=== PATIENT | female | born 1995 | race Caucasian/White ===

== ENCOUNTER → 2020-09-16 15:07 | Outpatient (CLI) | payer OTHER, SELFPAY ==
[2020-09-16 14:26] VITALS: BMI 25.0
[2020-09-16 15:32] LABS: Absolute Lymphocyte Count 2.02 X10^3/uL (0.83-4.51); Absolute Neutrophil Count 5.5 X10^3/uL (2.0-7.7); Basophil# 0.03 X10^3/uL; Basophil% 0.4 % (0-1); Eosinophil# 0.06 X10^3/uL; Eosinophils% 0.7 % (0-5); Hematocrit 36.8 % (37-47); Hemoglobin 12.3 g/dL (12.0-15.0); Lymphocyte # 2.02 X10^3/ul (4.0); Mean Corp Hgb Conc 33.4 g/dL (32-36); Mean Corpuscular Hgb 31.3 pg (27.0-32.0); Mean Corpuscular Volume 93.6 fL (81-99); Mean Platelet Vol. 10.2 fl (6.2-12.0); Monocyte# 0.76 X10^3/uL; NRBC Flagged by Analyzer 0 % (0-5); Neutrophil # 5.53 X10^3/uL (2.7-7.7); Neutrophil % 65.7 % (47-70); Platelet Count 298 K/mm3 (150-450); RBC Distribution Width CV 11.9 % (11.6-14.6); RBC Distribution Width SD 40.6 fl (35.1-43.9); Red Blood Count 3.93 M/mm3 (4.2-5.4); White Blood Count 8.4 K/mm3 (4.4-11.0)
[2020-09-16 15:49] LABS: T4 Free Direct 1.04 ng/dL (0.76-1.46); Thyroid Stim Hormone (TSH) 2.34 uIU/mL (0.358-3.74)
[2020-09-16 18:20] LABS: Amphetamine Urine VISTA NEGATIVE (<1000 ng/mL); Barbiturate Urine VISTA NEGATIVE (< 200 ng/mL); Benzodiazepine Urine VISTA NEGATIVE (< 200 ng/mL); Cocaine Urine VISTA NEGATIVE (< 300 ng/mL); Ecstacy Urine VISTA NEGATIVE (< 500 ng/mL); Methadone Urine VISTA NEGATIVE (< 300 ng/mL); PCP Urine VISTA NEGATIVE (< 25 ng/mL); THC Urine VISTA NEGATIVE (< 50 ng/mL); Vista UDS pH Range 7
[2020-09-17 09:32] LABS: HIV - WCH Non-Reactive (Nonreactive); Hepatitis B Surface Antigen Non-Reactive (Nonreactive); Hepatitis C Antibody Non-Reactive (Nonreactive); Rubella IgG Reactive (Nonreactive)
[2020-09-20 20:07] LABS: Chlamydia By Nucleic Acid AMP Negative (Negative)
[2020-09-20 21:17] LABS: Gonococcus By Nucleic Acid AMP Negative (Negative)
[2020-09-23 01:10] LABS: Rapid Plasmin Reagin (RPR) NONREACTIVE (NONREACTIVE)
[2020-09-23 10:29] LABS: HPV Reflexed? NOT INDICATED
== END ==
PROVIDERS: PCP Family Medicine; Referring Provider Obstetrics & Gynecology; Visit Provider Obstetrics & Gynecology
DX: Z12.4 Encounter for screening for malignant neoplasm of cervix (principal); Z11.3 Encounter for screening for infections with a predominantly sexual mode of transmission; O99.280 Endocrine, nutritional and metabolic diseases complicating pregnancy, unspecified trimester; E06.3 Autoimmune thyroiditis; Z3A.00 Weeks of gestation of pregnancy not specified
CPT/HCPCS: 80307; 84439; 84443; 85025; 86592; 86703; 86762; 86803; 86850; 86900; 86901; 87086; 87088; 87340; 87491; 87591; 88175; G0145

== ENCOUNTER 2020-11-20 20:55 | Emergency (ER) | payer OTHER, SELFPAY ==
[2020-11-15 16:30] VITALS: BMI 25.7
[2020-11-20 20:56] VITALS: BP 122/71; PULSE 86; RESP 15; TEMP 36.2; O2SAT 98; BMI 25.8
[2020-11-20 21:21] LABS: Bacteria 0 SEEN /hpf (None Seen); Mucous, Urine 0 SEEN /hpf (<or=2+); Red Blood Cells-Urine 0 SEEN /hpf (0-5); White Blood Cells 0 SEEN /hpf (0-5)
[2020-11-20 21:24] LABS: Color, Urine Yellow (Yellow); Glucose, Dipstick Normal (Normal); Ketone-Dipstick Negative (Negative); Leukocyte Esterase-Dipstick 25 /ul (Negative); Nitrite-Dipstick Negative (Negative); Occult Blood-Urine Negative /ul (Negative); Protein-Dipstick Negative (Negative); Specific Gravity, Urine 1.005 (1.002-1.030); Urine Bilirubin Dipstick Negative (Negative); Urine Clarity Clear (Clear); Urine Urobilinogen Normal (Normal)
--- NOTE | 2020-11-20 21:39 | ED.DCSUM_ITS ---
History of Present Illness Chief Complaint: Abd Pain Informant: Patient Onset: Today Context: Sudden Onset Timing: Continuous Quality: Cramping central low back pain and superior pubic fullness Location: Low back and suprapubic Current Severity: Mild Maximum Severity: Moderate Worsened by: Nothing specific Relieved by: Nothing Associated Symptoms: Frequency Narrative: Patient is a 25-year-old female who is 18 weeks gestation who presents with crampy central low back pain suprapubic fullness pressure with frequency. She denies fever, chills night sweats. She denies nausea or vomiting. She denies vaginal bleeding. She states she has normal vaginal discharge. She has no other complaints. She did contact her OB who recommended she come to the emergency department. Her OB was seen a another patient and saw her agrees with work-up. Prior similar symptoms: No Recent Illness/Hospitalization: No - Past Medical History (1) Depression Status: Acute Comment: in the past was on an antidepressant but is not currently and is doing well. (2) Status: Acute Comment: declines genetic and carrier (3) Shirley's disease Status: Chronic Comment: on supplements going - sees homeopathic doctor. TSH and T4 nl at [facility]. Thyroid function panel q trimester. Past Medical History - Allergies and Home Meds Allergies/Adverse Reactions: Allergies gluten Adverse Reaction (Severe, Verified 11/20/20 20:58) Hives Primary Care Physician: Homar Jean MD [Primary Care Provider] - Prior records reviewed: Yes Surgical History: noncontributory Lives: Spouse/ Significant Other Smoking Status: Never smoker Alcohol: None Drugs: None Review of Systems General: Denies: Chills - , Fever - , Subjective, Sweats Eyes: Denies: Visual changes - bilaterally, Blurred Vision - bilaterally ENT: Denies: Bilateral ear pain, Rhinorrhea, Sore throat Cardiovascular: Denies: Chest pain, Palpitations Respiratory: Denies: Dyspnea, Cough Gastrointestinal: Reports: Abdominal pain. Denies: Nausea, Vomiting Genitourinary: Reports: Frequency. Denies: Dysuria, Hematuria Musculoskeletal: Reports: Back pain. Denies: Myalgias, Arthralgias, Neck pain, Swelling, Extremity Pain Skin: Denies: Rash, Wounds Endocrine: Denies: Polyuria, Polydipsia Hematologic: Denies: Easy bruising Physical Exam Vital Signs/Narrative: Vital Signs Temp Pulse Resp BP Pulse Ox 11/20/20 20:56 97.1 F L 86 15 122/71 H 98 Inital Vital Signs reviewed: Yes General: Well nourished, Well developed, No Acute Distress Head: Normocephalic, Atraumatic Eyes: Perrl, EOMI ENT: Moist mucous membranes, No rhinorrhea Neck: Supple, Nontender, No lymphadenopathy, No JVD Cardiovascular: Regular rate, Regular rhythm, No murmurs, Normal S1, Normal S2 Respiratory: No distress, CTA bilaterally Abdomen: Soft, Nondistended - There is slight tympany to percussion centrally., Normal bowel sounds, No masses, Tender - Prepubic region only. Negative for: Nontender Rectal: Deferred Back: Nontender. Negative for: CVA tenderness Extremities: Nontender Skin: Normal color, No rash, No Trauma. Negative for: Cyanosis, Diaphoresis, Jaundice Neurological: Alert, Oriented x3, Cranial nerves II-XII grossly intact, Normal Strength, Normal Sensation Psychological: Normal affect, Normal Mood Diagnostic/Tx/Re-eval Laboratory Results 11/20/20 21:17 Urine Color Yellow Urine Clarity Clear Urine pH 7.0 Ur Specific [place] 1.005 Urine Protein Negative Urine Glucose (UA) Normal Urine Ketones Negative Urine Occult Blood Negative Urine Nitrite Negative Urine Bilirubin Negative Urine Urobilinogen Normal Ur Leukocyte Esterase 25 H Urine RBC 0 SEEN Urine WBC 0 SEEN Ur Squamous Epith Cells 0-5 SEEN Urine Bacteria 0 SEEN Urine Mucus 0 SEEN Patient was informed that her urine is unremarkable. Dr. Tavarez did speak with her. Patient is aware that her symptoms are most likely due to round ligament pain. - Medical Decision Making UA was obtained to assess for acute cystitis. ED Disposition - Plan for ED Patient: Disposition: Home or Assisted Living Diagnosis: Pain of round ligament during Instructions: ED Abdominal Pain, Early Referrals: Homar Jean MD [Primary Care Provider] - Anuja Tavarez MD [STAFF PHYSICIAN] - Keep Kari appointment
[2020-11-20 21:42] LABS: Squamous Epithelial Cells - UA 0-5 SEEN /hpf (5-10)
[2020-11-20 22:03] VITALS: PULSE 90; RESP 16; O2SAT 97
== END 2020-11-20 22:03 | disposition home or self-care (01) ==
PROVIDERS: Emergency Provider Emergency Medicine; PCP Family Medicine
DX: O26.892 Other specified pregnancy related conditions, second trimester (principal); R10.2 Pelvic and perineal pain; O99.282 Endocrine, nutritional and metabolic diseases complicating pregnancy, second trimester; E06.3 Autoimmune thyroiditis; Z3A.18 18 weeks gestation of pregnancy
CPT/HCPCS: 81001; 99282

== ENCOUNTER → 2020-12-06 16:32 | Outpatient (CLI) | payer OTHER, SELFPAY ==
[2020-12-06 15:59] VITALS: BMI 25.8
[2020-12-06 18:19] LABS: T4 Free Direct 1.05 ng/dL (0.76-1.46); Thyroid Stim Hormone (TSH) 1.99 uIU/mL (0.358-3.74)
== END ==
PROVIDERS: PCP Family Medicine; Referring Provider Obstetrics & Gynecology; Visit Provider Obstetrics & Gynecology
DX: E06.3 Autoimmune thyroiditis (principal)
CPT/HCPCS: 36415; 84439; 84443

== ENCOUNTER → 2021-01-28 10:09 | Outpatient (CLI) | payer OTHER, SELFPAY ==
[2021-01-11 13:09] VITALS: BMI 25.8
[2021-01-28 10:28] LABS: Absolute Lymphocyte Count 1.78 X10^3/uL (0.83-4.51); Absolute Neutrophil Count 5.7 X10^3/uL (2.0-7.7); Basophil# 0.02 X10^3/uL; Basophil% 0.2 % (0-1); Eosinophil# 0.13 X10^3/uL; Eosinophils% 1.6 % (0-5); Hematocrit 36.8 % (37-47); Hemoglobin 12.2 g/dL (12.0-15.0); Lymphocyte # 1.78 X10^3/ul (0.83-4.51); Lymphocyte % 21.8 % (19-41); Mean Corp Hgb Conc 33.2 g/dL (32-36); Mean Corpuscular Hgb 32.2 pg (27.0-32.0); Mean Corpuscular Volume 97.1 fL (81-99); Mean Platelet Vol. 8.9 fl (6.2-12.0); Monocyte# 0.52 X10^3/uL; Monocyte% 6.4 % (0-10); NRBC Flagged by Analyzer 0 % (0-5); Neutrophil % 69.6 % (47-70); Platelet Count 287 K/mm3 (150-450); RBC Distribution Width CV 12.2 % (11.6-14.6); RBC Distribution Width SD 43.3 fl (35.1-43.9); Red Blood Count 3.79 M/mm3 (4.2-5.4); White Blood Count 8.2 K/mm3 (4.4-11.0)
[2021-01-28 10:38] LABS: Glucose Challenge Gest 1H 50g 115 mg/dL (70-140)
[2021-01-28 11:17] LABS: Thyroid Stim Hormone (TSH) 1.99 uIU/mL (0.358-3.74)
== END ==
PROVIDERS: PCP Family Medicine; Referring Provider Obstetrics & Gynecology; Visit Provider Obstetrics & Gynecology
DX: O99.281 Endocrine, nutritional and metabolic diseases complicating pregnancy, first trimester (principal); E06.3 Autoimmune thyroiditis; Z3A.00 Weeks of gestation of pregnancy not specified
CPT/HCPCS: 36415; 82950; 84443; 85025

== ENCOUNTER → 2021-03-31 | Outpatient (CLI) | payer OTHER, SELFPAY | END | disposition home or self-care (01) | LOC: LABSPEC 16:53 | PROVIDERS: Visit Provider Obstetrics & Gynecology | DX: Z34.01 Encounter for supervision of normal first pregnancy, first trimester (principal) | CPT/HCPCS: 87081 ==

== ENCOUNTER 2021-04-13 14:40 | Outpatient (CLI) | payer OTHER, SELFPAY ==
[2021-04-13 14:48] VITALS: BMI 33.5
[2021-04-13 14:52] VITALS: BP 124/62; PULSE 77
--- NOTE | 2021-04-17 06:56 | OB.TRI.PN_ITS ---
Progress Notes Date of Service: 04/13/21 Progress Note: Patient presents for triage evaluation secondary to false labor FHT: 130 Moderate variability reactive no decelerations category I tracing Ridge: q 3-5 Contractions Assessment and plan: false labor Reactive NST, reassuring maternal and status patient discharged to home to follow-up as scheduled. See problem list details for additional plan information. Charges/Coding Procedures Urinary/Genital 52xxx-59xxx: 53069-61 non-stress test Interp Assessment & Plan (1) False labor:
== END 2021-04-13 15:54 | disposition home or self-care (01) ==
LOC: WPOUT 14:46 → WP 14:47
PROVIDERS: Visit Provider Obstetrics & Gynecology
DX: O47.9 False labor, unspecified (principal); Z3A.00 Weeks of gestation of pregnancy not specified
CPT/HCPCS: 59025; 59050; 99218; G0378

== ENCOUNTER 2021-04-23 02:45 | Inpatient (IN) | payer OTHER, SELFPAY ==
[2021-04-23] VITALS (76 sets, daily range): BP systolic 100–137; BP diastolic 55–88; PULSE 70–109; RESP 16; TEMP 36.4–36.9; O2SAT 96–100; BMI 33.3
[2021-04-23] MEDS: Lactated Ringers 500 ML 999 ML IV (03:05)
[2021-04-23 03:24] LABS: Absolute Neutrophil Count 10.4 X10^3/uL (2.0-7.7); Basophil# 0.04 X10^3/uL; Basophil% 0.3 % (0-1); Eosinophil# 0.26 X10^3/uL; Eosinophils% 1.8 % (0-5); Hematocrit 38.6 % (37-47); Lymphocyte % 19.5 % (19-41); Mean Corp Hgb Conc 33.7 g/dL (32-36); Mean Corpuscular Hgb 32.5 pg (27.0-32.0); Mean Corpuscular Volume 96.5 fL (81-99); Monocyte# 1.15 X10^3/uL; Monocyte% 7.7 % (0-10); NRBC Flagged by Analyzer 0 % (0-5); Neutrophil # 10.43 X10^3/uL (2.7-7.7); Neutrophil % 70.3 % (47-70); Platelet Count 338 K/mm3 (150-450); RBC Distribution Width CV 11.9 % (11.6-14.6); RBC Distribution Width SD 42.2 fl (35.1-43.9); White Blood Count 14.8 K/mm3 (4.4-11.0)
[2021-04-23] MEDS: Lactated Ringers 1,000 ML 200 ML IV ×3 (03:34→12:55)
[2021-04-23] MEDS: fentaNYL-bupivacaine (epidural) 100 ML BAG EPIDURAL ×3 (05:35→14:54)
--- NOTE | 2021-04-23 06:10 | HP.PCM.OB_ITS ---
HPI - General General Date of Admission: 04/23/21 HPI Narrative DOMINIQUE SHAW, is a 25 F at 40/1 who presents in active labor Maternal Data Information CLIVE Calculator Estimated Delivery Date Method Current WG Current Estimate 04/22/21 LMP (Certain) 40w 1d Other Estimates 04/20/21 Ultrasound #1 40w 3d PFSH PFSH Medical History Depression Shirley's disease Home Medications multivitamin no.47-iron fum 27 mg-folate no.1 1 mg-dha 300 mg capsule 1 cap PO DAILY 09/07/20 [History Last Taken Unknown] Allergy/AdvReac Type Severity Reaction Status Date / Time gluten AdvReac Severe Hives Verified 04/23/21 02:32 Family History Grandmother Diabetes Brain cancer Grandfather Skin cancer Social History household members: spouse current occupational status: employed current occupation: teacher Smoking Status: Never smoker second hand exposure: No alcohol intake: never substance use type: does not use caffeine: No what type of physical activity do you participate in: none seatbelt use: always do you feel safe at home: Yes 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- [employer] History 1 Elective abortions Hx Para 0 Spontaneous abortions Hx # Term Pregnancies Ectopic pregnancies Hx # Pregnancies Multiple births # of living children Visit Details Expected Delivery Route/Plan plan IOL by 42 week Labor Preferences- CB/BF classes: private birthing classes through [facility] labor support person: [facility] labor intervention preferences: minimal intervention pain management options preferred: minimal interveniotn cut cord/dad catch: yes : yes PP control planned: declines discussed possible routes of delivery and associated risks: [] special requests: [] Plans covid status: non immune counseled regarding risk of covid in vs vaccination and declined vaccination flu vaccine: tdap vaccine: declines rhogam: LARC form signed: 02/14 movement and labor precautions reviewed. Problem list reviewed and updated with the most current plan of care details and appropriate orders placed. Relevant counseling for the gestational age provided. Continue routine care and follow up unless otherwise noted in visit notes/problem list details OB Flowsheet Initial Weight: 160 lb Date -?-?-?-?-?-?-?-?-?-?-?-?- EGA Weight BP Urine Prot -?-?-?-?-?-?-?-?-?-?-?-?- Glucose FHR FuHt Pres Dilation -?-?-?-?-?-?-?-?-?-?-?-?- Effaced St Visit Note 09/16/20 -?-?-?-?-?-?-?-?-?-?-?-?- 8w 6d 160 lb (+0 oz) 106/70 -?-?-?-?-?-?-?-?-?-?-?-?- 155 -?-?-?-?-?-?-?-?-?-?-?-?- GP - CRL 22mm co nsistent with LMP. 10/13/20 -?-?-?-?-?-?-?-?-?-?-?-?- 12w 5d 161 lb 8 oz (+1 lb 8 oz) 110/68 Negative -?-?-?-?-?-?-?-?-?-?-?-?- Negative 145 -?-?-?-?-?-?-?-?-?-?-?-?- GP - no cramping or bleeding. PRR. Anatomy scan ordered. 11/15/20 -?-?-?-?-?-?-?-?-?-?-?-?- 17w 3d 164 lb (+4 lb) 108/66 -?-?-?-?-?--?-?-?-?-?-?-?- 140 -?-?-?-?-?-?-?-?-?-?-?-?- Sm- no vb crampi ng. 12/06/20 -?-?-?-?-?-?-?-?-?-?-?-?- 20w 3d 171 lb (+11 lb) 102/80 Negative -?-?-?-?-?-?-?-?-?-?-?-?- Negative 140 -?-?-?-?-?-?-?-?-?-?-?-?- Sm- no vb crampi ng 01/06/21 -?-?-?-?-?-?-?-?--?-?-?-?- 24w 6d 178 lb 4 oz (+18 lb 4 oz) 112/66 Negative -?-?-?-?-?-?-?-?-?-?-?-?- Negative 145 -?-?-?-?-?-?-?-?-?-?-?-?- GP - no LOF, VB, DFM, ctx. GCT next visit. 01/11/21 -?-?-?-?-?-?-?-?-?-?-?-?- 25w 4d 177 lb 8 oz (+17 lb 8 oz) 112/68 Negative -?-?-?-?-?-?-?-?-?-?-?-?- Negative 155 -?-?-?-?-?-?-?-?-?-?-?-?- MH-work in for n o FM today. FHT found easily, noted moved also. No VB, LOF. Reassured 01/28/21 -?-?-?-?-?-?-?-?-?-?-?-?- 28w 0d 183 lb (+23 lb) 112/64 Negative -?-?-?-?-?-?-?-?-?-?-?-?- Negative 145 28 -?-?-?-?-?-?-?-?-?-?-?-?- GP - no LOF, VB, DFM, ctx. 28w labs nl. TSH added on. Discussed TDAP. 02/14/21 -?-?-?-?-?-?-?-?-?-?-?-?- 30w 3d 192 lb 2 oz (+32 lb 2 oz) 120/72 Negative -?-?-?-?-?-?-?-?-?-?-?-?- Negative 140 30 -?-?-?-?-?-?-?-?-?-?-?-?- GP - no LOF, VB, DFM, ctx. Denies complaints. LARC form signed. 03/03/21 -?-?-?-?-?-?-?-?-?-?-?-?- 32w 6d 197 lb (+37 lb) 116/82 Negative -?-?-?-?-?-?-?-?-?-?-?-?- Negative 140 32 -?-?-?-?-?-?-?-?-?-?-?-?- SM- no vb lof go od fm no regular ctx 03/17/21 -?-?-?-?-?-?-?-?-?-?-?-?- 34w 6d 206 lb (+46 lb) 120/72 -?-?-?-?-?-?-?-?-?-?-?-?- 140 34 Cephalic -?-?-?-?-?-?-?-?-?-?-?-?- GP - no LOF, VB, DFM, ctx. Denies complaints. Discussed management of LE swelling 03/31/21 -?-?-?-?-?-?-?-?-?-?-?-?- 36w 6d 212 lb (+52 lb) 122/70 -?-?-?-?-?-?-?-?-?-?-?-?- 140 37 Cephalic 1 -?-?-?-?-?-?-?-?-?-?-?-?- 50 -2 SM- no vb lof good fm no regular ctx gbs 04/07/21 -?-?-?-?-?-?-?-?-?-?-?-?- 37w 6d 214 lb 4 oz (+54 lb 4 oz) 120/78 Negative -?-?-?-?-?-?-?-?-?-?-?-?- Negative 135 38 Cephalic 2 -?-?-?-?-?-?-?-?-?-?-?-?- 50 -2 GP - no LO F, VB, dFM, ctx. Denies complaints. 04/14/21 -?-?-?-?-?-?-?-?-?-?-?-?- 38w 6d 215 lb (+55 lb) 102/76 Negative -?-?-?-?-?-?-?-?-?-?-?-?- Negative 135 39 -?-?-?-?-?-?-?-?-?-?-?-?- SM- no vb lof go od fm no reuglar ctx 04/19/21 -?-?-?-?-?-?-?-?-?-?-?-?- 39w 4d 218 lb 8 oz (+58 lb 8 oz) 124/74 Negative -?-?-?-?-?-?-?-?-?-?-?-?- Negative 130 40 Cephalic 3 -?-?-?-?-?-?-?-?-?-?-?-?- 60 -1 SM- no vb lof good fm nor egular ctx 04/23/21 -?-?-?-?-?-?-?-?-?-?-?-?- 40w 1d 212 lb 12.8 oz (+52 lb 12.8 oz) 118/82 107/59 114/78 119/84 137/86 116/88 119/78 105/62 111/71 115/74 112/74 109/75 100/78 120/70 109/60 112/70 -?-?-?-?-?-?-?-?-?-?-?-?- -?-?-?-?-?-?-?-?-?-?-?-?- NST FHR Rate Baby A Baseline: 130 Variability:: Moderate Accelerations:: 15 x 15 Decelerations:: None NST Reactive:: Yes FHR Category:: Category I Uterine Activity:: q2-4min ROS Eyes Eyes: Reports systems reviewed and no addt'l complaints, except as documented ENT HEENT: Reports systems reviewed and no addt'l complaints, except as documented Cardiovascular Cardiovascular: Reports systems reviewed and no addt'l complaints, except as documented Respiratory/Chest Respiratory/Chest: Reports systems reviewed and no addt'l complaints, except as documented Gastrointestinal Gastrointestinal: Reports systems reviewed and no addt'l complaints, except as documented Genitourinary Genitourinary: Reports systems reviewed and no addt'l complaints, except as documented Musculoskeletal Musculoskeletal: Reports systems reviewed and no addt'l complaints, except as documented Integumentary Integumentary: Reports systems reviewed and no addt'l complaints, except as documented Neurologic Neurologic: Reports systems reviewed and no addt'l complaints, except as documented Psychiatric Psychiatric: Reports systems reviewed and no addt'l complaints, except as documented Endocrine Endocrinology: Reports systems reviewed and no addt'l complaints, except as documented Hematologic/Lymphatic Hematologic/Lymphatic: Reports systems reviewed and no addt'l complaints, except as documented Allergic/Immunologic Allergic/Immunologic: Reports systems reviewed and no addt'l complaints, except as documented Vital Signs Vital Signs Vital Signs: 04/23/21 02:28 04/23/21 02:29 04/23/21 04:57 Temperature 97.6 F L Temperature Source Temporal Pulse Rate 90 85 Blood Pressure 118/82 H 107/59 L BP Systolic 118 107 BP Diastolic 82 59 Pulse Ox 98 04/23/21 05:00 04/23/21 05:02 04/23/21 05:05 Temperature Temperature Source Pulse Rate 87 75 91 Blood Pressure 114/78 BP Systolic 114 BP Diastolic 78 Pulse Ox 100 100 04/23/21 05:07 04/23/21 05:10 04/23/21 05:13 Temperature Temperature Source Pulse Rate 87 93 90 Blood Pressure 119/84 H 137/86 H BP Systolic 119 137 BP Diastolic 84 86 Pulse Ox 100 04/23/21 05:15 04/23/21 05:17 04/23/21 05:20 Temperature Temperature Source Pulse Rate 82 85 89 Blood Pressure 116/88 H BP Systolic 116 BP Diastolic 88 Pulse Ox 100 100 04/23/21 05:23 04/23/21 05:25 04/23/21 05:28 Temperature Temperature Source Pulse Rate 89 89 83 Blood Pressure 119/78 105/62 BP Systolic 119 105 BP Diastolic 78 62 Pulse Ox 100 04/23/21 05:30 04/23/21 05:32 04/23/21 05:35 Temperature Temperature Source Pulse Rate 90 86 82 Blood Pressure 111/71 BP Systolic 111 BP Diastolic 71 Pulse Ox 100 100 04/23/21 05:38 04/23/21 05:40 04/23/21 05:41 Temperature Temperature Source Pulse Rate 86 87 Blood Pressure 115/74 112/74 BP Systolic 115 112 BP Diastolic 74 74 Pulse Ox 100 04/23/21 05:45 04/23/21 05:46 04/23/21 05:50 Temperature Temperature Source Pulse Rate 88 77 80 Blood Pressure 109/75 BP Systolic 109 BP Diastolic 75 Pulse Ox 99 100 04/23/21 05:52 04/23/21 05:55 04/23/21 05:58 Temperature Temperature Source Pulse Rate 85 72 77 Blood Pressure 100/78 120/70 BP Systolic 100 120 BP Diastolic 78 70 Pulse Ox 100 04/23/21 06:00 04/23/21 06:02 04/23/21 06:05 Temperature Temperature Source Pulse Rate 84 74 74 Blood Pressure 109/60 BP Systolic 109 BP Diastolic 60 Pulse Ox 99 98 04/23/21 06:06 Temperature Temperature Source Pulse Rate 77 Blood Pressure 112/70 BP Systolic 112 BP Diastolic 70 Pulse Ox Weight Weight: 212 lb 12.8 oz Body Mass Index (BMI) 33.3 Physical Exam Const alert, oriented x3, no apparent distress, average body habitus, healthy appearing and well nourished HEENT normocephalic and moist oral mucous membranes Head and Scalp: atraumatic Eyes PERRL and EOMs intact bilaterally Neck full ROM Resp normal respiratory effort, no retractions and no use of accessory muscles Cardio regular rate and regular rhythm GI soft to palpation, non-tender and non-distended Extremity normal to inspection and full ROM Skin no rashes or lesions noted Neuro no focal motor deficits and no sensory deficits noted Psych mental status grossly normal, affect normal, speech normal and activity/motor behavior normal Labs Labs Labs: Blood Type O POSITIVE Antibody Screen NEGATIVE Hct 38.6 % (37-47) Hgb 13.0 g/dL (12.0-15.0) Rubella IgG Antibody Reactive (Nonreactive) Hep Bs Antigen Non-Reactive (Nonreactive) Neisseria gonorrhoeae DNA (JACE) Negative (Negative) HIV 1&2 Antibody Non-Reactive (Nonreactive) Glucose 1 Hr 50 gm 115 mg/dL (70-140) Assessment & Plan (1) Supervision of normal : QUALIFIERS: Normal : normal first Trimester: first trimester Qualified Code(s): Z34.01 - Encounter for supervision of normal first , first trimester COMMENT: PRR CLIVE: 04/22/21 boy- [place] Spouse: LO (2) : QUALIFIERS: Weeks of gestation: 39 weeks Qualified Code(s): Z3A. 39 - 39 weeks gestation of COMMENT: declines genetic and carrier; NL anatomy (3) Depression: QUALIFIERS: Depression Type: unspecified Qualified Code(s): F32.9 - Major depressive disorder, single episode, unspecified COMMENT: in the past was on an antidepressant but is not currently and is doing well. (4) Shirley's disease: COMMENT: on supplements going - sees homeopathic doctor. TSH and T4 nl at [facility]. Thyroid function panel q trimester. (5) Active labor at term: PLAN: Patient presents IAL, plan expectant management for , pitocin/AROM PRN if needed. Pain management: plans epidural. GBS negative. Management of any complications: none I have reviewed the [facility] and made any clinically relevant updates.
[2021-04-23 07:36] LABS: ROM Internal Control Test YES-OK TO RESULT pt. (Internal QC)
[2021-04-23 07:37] LABS: ROM Patient Test POSITIVE (Negative)
[2021-04-23] MEDS: Oxytocin 30 units/NS 500 ml 30 UNITS/500 ML IV.SOLN 334 UNITS IV (16:40)
--- NOTE | 2021-04-23 16:56 | EX.PCM.OBRPT ---
Assessment & Plan (1) Vaginal delivery: COMMENT: GP IAL 2nd degree 04/23 [place]aina[place] (2) Active labor at term: (3) Supervision of normal : QUALIFIERS: Normal : normal first Trimester: first trimester Qualified Code(s): Z34.01 - Encounter for supervision of normal first , first trimester COMMENT: PRR CLIVE: 04/22/21 kylah Felder Spouse: LO (4) : QUALIFIERS: Weeks of gestation: 39 weeks Qualified Code(s): Z3A.39 - 39 weeks gestation of COMMENT: declines genetic and carrier; NL anatomy (5) Depression: QUALIFIERS: Depression Type: unspecified Qualified Code(s): F32.9 - Major depressive disorder, single episode, unspecified COMMENT: in the past was on an antidepressant but is not currently and is doing well. (6) Shirley's disease: COMMENT: on supplements going - sees homeopathic doctor. TSH and T4 nl at [facility]. Thyroid function panel q trimester. Maternal Data Information CLIVE Calculator Estimated Delivery Date Method Current WG Current Estimate 04/22/21 LMP (Certain) 40w 1d Other Estimates 04/20/21 Ultrasound #1 40w 3d Vaginal Delivery Maternal Presentation Maternal Presentation: Active Labor Maternal Presentation: 25-year-old G1, P0 at 40 weeks gestation admitted in active labor. Patient made cervical change to complete dilation without augmentation. Operative Information Date of Procedure: 04/23/21 Pre-Operative Diagnosis: Term , active labor Post-Operative Diagnosis: Same Surgery / Procedure Performed: Spontaneous Vaginal Delivery Type of Anesthesia: Epidural Drain: Paredes to straight drain Estimated Blood Loss: 200 Findings Description of Procedure: Patient began pushing and delivered the head in the GLORIA presentation. The head was delivered atraumatically and no nuchal cord was noted. The anterior and posterior shoulders delivered without complication followed by the rest of the and the was placed on the maternal abdomen. Delayed cord clamping was employed for approximately 60 seconds. Cord was clamped and cut and gentle traction was applied to the cord and the placenta delivered spontaneously immediately following it was noted to be intact with three-vessel cord. The perineum and vagina were inspected and a midline second-degree perineal laceration was noted and repaired in the standard fashion using 3-0 Vicryl rapide suture. EBL was 200 cc. Patient and infant tolerated delivery well. Presentation: Vertex and GLORIA Amniotic Membrane Rupture Type: Spontaneous Amniotic Fluid Description: Lightly stained meconium Placental Delivery Description: Spontaneous Placenta Disposition: [facility] Cord Vessel Description: 3 Vessels Cord Entanglement: None Infant A Gender: Male (1 minute): 8 (5 minute): 9 Delayed Cord Clamping: Yes Post Vaginal Delivery Medications Given After Delivery: IV Pitocin Episiotomy Description: None Laceration: Midline, Perineal Extension/lac and 2nd degree Complication Complications: None Procedures Urinary/Genital 52xxx-59xxx: [id number] Vaginal Delivery [facility]
--- NOTE | 2021-04-23 16:59 | PCM.DC ---
Discharge Instructions Diet Discharge Diet: No restrictions Activity Discharge Activity: Return to Normal Activity, May Not Drive (while taking narcotic pain medications.) and May Shower May resume sexual activity in: 4-6 weeks Dressing / Incision Call your doctor if your incision/area has: Continuous Slow Oozing, Sudden Increased Bleeding, Increased Pain/ Swelling, Increased Redness and Foul Smelling Discharge Follow Up Care When: Call to make an appointment with your doctor in 6 weeks. If you had elevated Blood Pressure or 4th degree laceration you will need to be seen in 2 weeks. Test Results: Test results from this visit will be discussed in further detail at your follow-up appointment, if applicable. Discharge Plan Admission Admit Date/Time: 04/23/21 02:45 Primary Reason for Your Visit: Labor Attending Provider: Anuja Tavarez Primary Care Provider: Care Physician,Padma Primary Instructions Patient Instructions: After a Vaginal Discharge Orders/Prescriptions Prescriptions: New ibuprofen 800 mg tablet 800 mg PO Q8H PRN (Reason: pain) Qty: 30 RF: 1 Continued PNV-DHA 27 mg iron-1 mg -300 mg capsule 1 cap PO DAILY RF: 0 Referrals / Follow Up: Care Physician,No Primary [Primary Care Provider] -
[2021-04-23] MEDS: Ibuprofen 600 MG Tablet PO (19:15)
[2021-04-23] MEDS: Acetaminophen 500 MG Tablet 1000 MG PO (22:31)
[2021-04-24 05:04] VITALS: BP 119/70; PULSE 92; RESP 16; TEMP 36.6
[2021-04-24] MEDS: Ibuprofen 600 MG Tablet PO ×2 (05:05→13:06)
[2021-04-24 07:51] VITALS: BP 117/75; PULSE 92; RESP 18; TEMP 36.6
[2021-04-24] MEDS: Acetaminophen 500 MG Tablet 1000 MG PO ×2 (07:53→18:12)
--- NOTE | 2021-04-24 10:34 | PN.OBGYN_ITS ---
Subjective Subjective Patient doing well without complaints. Tolerating PO. Ambulating and voiding without difficulty. Breast feeding well. Denies chest pain, shortness of breath, calf pain/swelling, fevers, chills, lightheadedness. Objective Data Objective Data Vital Signs: Vital Signs Temp Pulse Resp BP Pulse Ox 97.9 F 92 18 117/75 100 04/24/21 07:51 04/24/21 07:51 04/24/21 07:51 04/24/21 07:51 04/23/21 19:12 Oxygen Delivery Method Room Air Weight: 212 lb 12.8 oz Body Mass Index (BMI) 33.3 Intake & Output: Intake and Output for Last 24 Hours 04/22/21 04/23/21 04/24/21 23:59 23:59 23:59 Intake Total 3619.5 / 3619.5 Output Total 4750 / 4750 Balance -1130.5 / -1130.5 Lab / Micro Data Result Diagrams: 04/23/21 03:05 Micro: Microbiology 04/23/21 03:00 Nasal Secretion SARS-CoV-2 Antigen (Rapid) - Final ROS Constitutional Constitutional: Denies fever(s) Cardiovascular Cardiovascular: Denies chest pain, dyspnea or lightheadedness Gastrointestinal Gastrointestinal: Reports abdominal pain; Denies constipation or diarrhea Neurologic Neurologic: Denies dizziness or headache(s) Physical Exam Const alert, oriented x3, no apparent distress, average body habitus, healthy appearing and well nourished HEENT normocephalic Head and Scalp: atraumatic Eyes PERRL and EOMs intact bilaterally Neck full ROM Lymph Lymphatic: no lymphadenopathy noted Resp normal respiratory effort, no retractions and no use of accessory muscles Cardio regular rate GI soft to palpation, non-tender and non-distended Palpation: other Other Details: fundus firm Extremity normal to inspection and no clubbing, cyanosis or edema Skin no rashes or lesions noted Neuro no focal motor deficits and no sensory deficits noted Psych mental status grossly normal, affect normal and speech normal Assessment & Plan (1) Vaginal delivery: COMMENT: RADHA HOWELL 2nd degree 04/23 [place] PLAN: s/p PPD # 1 1. routine post delivery care 2. breast feeding- support given 3. rh positive 4. rubella immune
[2021-04-24 11:29] VITALS: BP 114/59; PULSE 93; RESP 16; TEMP 36.3
[2021-04-24 16:40] VITALS: BP 105/60; PULSE 100; RESP 16; TEMP 36.3
[2021-04-24 16:58] VITALS: PULSE 96
== END 2021-04-24 19:15 | disposition home or self-care (01) | DRG 807 ==
LOC: WPOUT 02:47 → WP 02:47
PROVIDERS: Admitting Provider Obstetrics & Gynecology; Visit Provider Obstetrics & Gynecology
DX: O42.92 Full-term premature rupture of membranes, unspecified as to length of time between rupture and onset of labor (principal); Z37.0 Single live birth; O99.344 Other mental disorders complicating childbirth; O70.1 Second degree perineal laceration during delivery; O77.0 Labor and delivery complicated by meconium in amniotic fluid; O99.284 Endocrine, nutritional and metabolic diseases complicating childbirth; E06.3 Autoimmune thyroiditis; F32.9 Major depressive disorder, single episode, unspecified; Z3A.40 40 weeks gestation of pregnancy
CPT/HCPCS: 59025; 59050; 84112; 85025; 86850; 86900; 86901; 87426; 99218; J7120; G0378

== ENCOUNTER 2022-09-01 13:45 | Outpatient (RCR) | payer MEDICAID, SELFPAY ==
--- NOTE | 2022-09-01 14:58 | HP.PTEVAL_ITS ---
Patient's Visit Information SUDHA SHAW is a 27 year old F referred to Physical Therapy by Alma Delia Dawson CNM with a diagnosis of URINARY INCONTINENCE. Date of Evaluation: 09/01/22 Physical Therapist: Sindhu Pablo PT, Cert MDT - Visit Plan Frequency: 1x/Week Duration: 8-12 WKS Plan: PELVIC FLOOR STRENGTHENING. URINARY RETENDTION, URGE AND FREQUENCY EDUCATION. HEALTHY BLADDER HABIT EDUCATION. TRAINING IN COORDINATION OF PELVIC FLOOR MUSCULATURE WITH HIP AND CORE (TRANSVERSE ABDOMINUS) MUSCULATURE. POSTURE CORRECTION/STRENGTHENING. CORE STRENGTHENING. WILLIE LE ROM, STRETCHING AND STRENGTHENING. TRAINING IN ABDOMINAL CAVITY PRESSURE MGMT WITH ADL'S. 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 Disability: NO. Present symptoms: NOT BEING ABLE TO CONTROL URINE. SINCE HAD BABY (18 MONTHS AGO) THERE ARE TIMES CAN'T MAKE IT TO THE BATHROOM. LEAKING URINE. PELVIC FLOOR WEAKNESS. Present since: BED WETTING SINCE CHILDHOOD BUT URGENCY AND LEAKING DURING THE DAY STARTED AFTER DELIVERING 18 MO OLD. Pain Scale: DENIES PAIN. Is it getting better, worse or staying the same: STAYING THE SAME. Commenced as a result of: BED WETTING STARTED FOR NO APPARENT REASON AND INCREASED INCONTINENCE APPEARS TO BE RELATED TO CHILDBIRTH. Worse: DELAYING URINATION. Better: NOT DELAYING URINATION AND EVEN URINATING WITHOUT URGE PRESENT. Disturbed sleep: NO - USUALLY DOES NOT GET UP TO URINATE AT NIGHT. ONE OR LESS TIMES PER NIGHT. Previous history/Previous treatment: PATIENT DENIES ANY PRIOR PELVIC FLOOR TREATMENT AND DENIES COMPLICATIONS WITH VAGINAL DELIVERY 18 MONTHS AGO. Coughing/sneezing/straining: POSITIVE FOR URINE LEAKING CONSISTANTLY. Gait: NORMAL. Bowel Dysfunction: NO. Accidents: NO. Unexplained weight loss: NO. Imaging: NO. PMH/Recent major surgery: HYPERTHYROIDISM - Objective Sitting/Standing Posture: FH. RSH'S. NORMAL LORDOSIS WITH NO RELEVANT LATERAL SHIFT. Other Observations: INDEP GAIT AND TRANSFERS. PATIENT BROUGHT 18 MONTH OLD SON TO [facility] AND HAD DIFFICULTY CONTAINING HIM DURING SESSION AT TIMES. Sensory deficit: WILLIE LE LIGHT TOUCH SENSATION GROSSLY INTACT AND SYMMETRICAL. ROM deficit: WILLIE LE'S WFL. Motor deficit: WILLIE LE'S GROSSLY 5/5 WITH MMT'ING EXCEPT HIPS 4/5. Dural Signs: NEGATIVE WILLIE LE'S. Lumbar mvmt loss: flex - NIL. ext - NIL. R SG - NIL. L SG - NIL. PATIENT DENIES PAIN WITH ALL TESTING. Core strength: POOR. Palpation: UNABLE TO DO PELVIC EXAM TODAY DUE TO HAVING SON WITH HER BUT PATIENT COMMUNICATES A GOOD UNDERSTANDING OF HOW TO CONTRACT PELVIC FLOOR AND VERBALIZES ABILITY TO ONLY HOLD CONTRACTION 3-4 SEC. STATES SHE HAS NOT DONE ANY PELVIC FLOOR EX'S IN A LONG TIME. FUNCTIONAL SCREEN: Incontinence Impact Questionnaire Score: 1. Urogenital Distress Inventory Score: 8. TREATMENT: INITIATED HEP WITH QUICK FLICK KEGELS X 8, 3 TIMES A DAY. PATIENT TOLERATED EX AND EXAM WELL TODAY. - Goals Goal 1:: DECREASE EPISODES OF URINE LEAKAGE TO ONE OR LESS TIMES A DAY. Goal Time Frame: 8-12 Weeks Goal 2:: PATIENT WILL BE ABLE TO SUCCESSFULLY DELAY VOIDING X 60 MINUTES WITHOUT URINE LEAKING. Goal Time Frame: 8-12 Weeks Goal 3:: INCREASE PELVIC FLOOR STRENGTH TO 5/5 Goal Time Frame: 8-12 Weeks Goal 4:: INCREASE PELVIC FLOOR ENDURANCE TO 10 REPS X 10 SEC EA Goal Time Frame: 8-12 Weeks Goal 5:: PATIENT WILL BE INDEP WITH A HEP FOR CONTINUED IMPROVEMENT ONCE FORMAL PHYSICAL THERAPY CONCLUDES. Goal Time Frame: 8-12 Weeks - Anticipated Interventions Patient/Client Instruction: Educate patient on: Condition, Plan of Care, Risk Factors For the Purpose of:: To improve self management Therapeutic Exercise to Include: Strength training, Endurance training, Body mechanics, Postural training, Flexibilty training, Neuromotor development, Dynamic Lumbar Stabilization For the Purpose of:: To improve muscle performance and motor function, To increase tolerance to activity/condition/position, To improve ability of physical actions for home/community/work/leisure Thank you for the opportunity to evaluate your patient. For Medicare and Medicare HMO plans, please review the plan of care and approve it. It will need to be FAXED BACK to us at [phone] for Medicare purposes. For Medicare only, by signing this I certify the plan of care. Please let me know if there are questions or concerns regarding this plan of care. Physician Signature: Date:
--- NOTE | 2022-11-02 11:08 | HP.PT.NRP ---
SUDHA SHAW was seen in my office for initial evaluation on 09/01/22. The following Plan of Care was established for this patient: Initial Frequency: 1x/Week Initial Duration: 8-12 WKS Patient/Client Instruction: Educate patient on: Condition, Plan of Care, Risk Factors For the Purpose of:: To improve self management Therapeutic Exercise to Include: Strength training, Endurance training, Body mechanics, Postural training, Flexibilty training, Neuromotor development, Dynamic Lumbar Stabilization For the Purpose of:: To improve muscle performance and motor function, To increase tolerance to activity/condition/position, To improve ability of physical actions for home/community/work/leisure This patient was last seen in our office 09/01/22. Pertinent comments regarding their Physical therapy will appear below: This patient was seen for an initial physical therapy evaluation and she has not returned to Physical Therapy. She is appropriate to return to MD for further follow-up as needed. At this point I will be discontinuing this patient from physical therapy. I would be happy to see this patient again in the future if found appropriate by the physician. Thank you! Sindhu Pablo, PT, Cert MDT
== END 2022-09-01 19:00 | disposition home or self-care (01) ==
LOC: PT 13:45
PROVIDERS: Referring Provider Registered Nurse; Visit Provider Registered Nurse
DX: R32 Unspecified urinary incontinence (principal)
CPT/HCPCS: 97162

== ENCOUNTER → 2023-07-04 | Outpatient (CLI) | payer MEDICAID, SELFPAY ==
[2023-07-06 22:06] LABS: Chlamydia By Nucleic Acid AMP Negative (Negative); Gonococcus By Nucleic Acid AMP Negative (Negative)
== END | disposition home or self-care (01) ==
PROVIDERS: Referring Provider Registered Nurse; Visit Provider Registered Nurse
DX: Z34.90 Encounter for supervision of normal pregnancy, unspecified, unspecified trimester (principal)
CPT/HCPCS: 87086; 87088; 87491; 87591

== ENCOUNTER → 2023-09-03 | Outpatient (CLI) | payer MEDICAID, SELFPAY ==
[2023-09-03 11:31] LABS: Absolute Lymphocyte Count 2.02 X10^3/uL (0.83-4.51); Absolute Neutrophil Count 6.7 X10^3/uL (2.0-7.7); Basophil# 0.02 X10^3/uL; Basophil% 0.2 % (0-1); Eosinophil# 0.09 X10^3/uL; Hemoglobin 12.5 g/dL (12.0-15.0); Lymphocyte # 2.02 X10^3/ul (0.83-4.51); Lymphocyte % 21.4 % (19-41); Mean Corp Hgb Conc 32.9 g/dL (32-36); Mean Corpuscular Hgb 30.6 pg (27.0-32.0); Mean Corpuscular Volume 93.1 fL (81-99); Mean Platelet Vol. 9.4 fl (6.2-12.0); Monocyte# 0.56 X10^3/uL; Monocyte% 5.9 % (0-10); NRBC Flagged by Analyzer 0 % (0-5); Neutrophil # 6.71 X10^3/uL (2.7-7.7); Neutrophil % 71.1 % (47-70); Platelet Count 333 K/mm3 (150-450); RBC Distribution Width CV 12.2 % (11.6-14.6); RBC Distribution Width SD 41.7 fl (35.1-43.9); Red Blood Count 4.08 M/mm3 (4.2-5.4); White Blood Count 9.4 K/mm3 (4.4-11.0)
--- OUTSIDE RECORDS SUMMARY | 2023-09-03 11:32 | XMS RPT_ITS | CCD ---
Author Name Unknown Address [address] [place] [address] Organization [facility] Results Test Name Value Interpretation Reference Range Facil ity Summary Purpose Family History No Family History Records Found Advance Directives No Advanced Directives Records Found Additional Source Comments INFORMATION SOURCE (unrecogn ized section and content) FOR RECORDS PERTAINING TO PATIENTS WHO ARE OR HAVE BEEN ENROLLED IN A CHEMICAL DEPENDENCY/SUBSTANCEABUSE PROGRAM, SOME INFORMATION MAY BE OMITTED. This clinical summary was aggregated from multiple sources. Caution should be exercised in using it in the provision of clinical care. This summary normalizes information from multiple sources, and as a consequence, information in this document may materially change the coding, format and clinical context of patient data. In addition, data may be omitted in some cases. CLINICAL DECISIONS SHOULD BE BASED ON THE PRIMARY CLINICAL RECORDS. [facility] provides no warranty or guarantee of the accuracy or completeness of information in this document.
[2023-09-03 12:00] LABS: Hemoglobin A1c 4.9 % (3.8-5.6)
[2023-09-03 12:02] LABS: Free T3 2.5 pg/mL (2.18-3.98); T4 Free Direct 0.91 ng/dL (0.76-1.46); Thyroid Stim Hormone (TSH) 2.69 uIU/mL (0.358-3.74)
[2023-09-03 12:41] LABS: HIV - WCH Non-Reactive (Nonreactive); Hepatitis B Surface Antigen Non-Reactive (Nonreactive); Hepatitis C Antibody Non-Reactive (Nonreactive); Rubella IgG Reactive (Nonreactive); Syphilis Antibodies Non-reactive
== END | disposition home or self-care (01) ==
LOC: PAVLAB 10:54
PROVIDERS: Referring Provider Registered Nurse; Visit Provider Registered Nurse
DX: Z34.90 Encounter for supervision of normal pregnancy, unspecified, unspecified trimester (principal)
CPT/HCPCS: 36415; 83036; 84439; 84443; 84481; 85025; 86703; 86762; 86780; 86803; 86850; 86900; 86901; 87340

== ENCOUNTER → 2023-11-23 | Outpatient (CLI) | payer MEDICAID, SELFPAY ==
[2023-11-23 11:55] LABS: Free T3 2.5 pg/mL (2.18-3.98); Thyroid Stim Hormone (TSH) 1.46 uIU/mL (0.358-3.74)
[2023-11-24 09:09] LABS: Thyroid Peroxidase AB 47 IU/mL (0-34)
== END | disposition home or self-care (01) ==
PROVIDERS: Referring Provider Advanced Practice Midwife; Visit Provider Advanced Practice Midwife
DX: E06.3 Autoimmune thyroiditis (principal)
CPT/HCPCS: 36415; 84439; 84443; 84481; 86376

== ENCOUNTER → 2023-11-29 | Outpatient (CLI) | payer MEDICAID, SELFPAY ==
[2023-11-29 16:23] LABS: Absolute Lymphocyte Count 2.02 X10^3/uL (0.83-4.51); Absolute Neutrophil Count 7.4 X10^3/uL (2.0-7.7); Basophil# 0.02 X10^3/uL; Basophil% 0.2 % (0-1); Eosinophil# 0.19 X10^3/uL; Eosinophils% 1.8 % (0-5); Hematocrit 36.4 % (37-47); Hemoglobin 12.4 g/dL (12.0-15.0); Lymphocyte # 2.02 X10^3/ul (0.83-4.51); Lymphocyte % 19.6 % (19-41); Mean Corp Hgb Conc 34.1 g/dL (32-36); Mean Corpuscular Hgb 31.9 pg (27.0-32.0); Mean Corpuscular Volume 93.6 fL (81-99); Mean Platelet Vol. 9.2 fl (6.2-12.0); Monocyte# 0.68 X10^3/uL; Monocyte% 6.6 % (0-10); NRBC Flagged by Analyzer 0 % (0-5); Neutrophil # 7.37 X10^3/uL (2.7-7.7); Neutrophil % 71.4 % (47-70); Platelet Count 359 K/mm3 (150-450); RBC Distribution Width CV 13.4 % (11.6-14.6); RBC Distribution Width SD 45.3 fl (35.1-43.9); Red Blood Count 3.89 M/mm3 (4.2-5.4); White Blood Count 10.3 K/mm3 (4.4-11.0)
[2023-11-29 16:54] LABS: Glucose Challenge Gest 1H 50g 135 mg/dL (70-140)
[2023-11-29 18:25] LABS: HIV - WCH Non-Reactive (Nonreactive); Syphilis Antibodies Non-reactive
== END | disposition home or self-care (01) ==
LOC: LAB 15:26
PROVIDERS: Referring Provider Obstetrics & Gynecology; Visit Provider Obstetrics & Gynecology
DX: O09.90 Supervision of high risk pregnancy, unspecified, unspecified trimester (principal); Z13.1 Encounter for screening for diabetes mellitus; Z3A.00 Weeks of gestation of pregnancy not specified
CPT/HCPCS: 36415; 82950; 85025; 86703; 86780

== ENCOUNTER → 2023-12-07 | Outpatient (CLI) | payer MEDICAID, SELFPAY ==
[2023-12-07 08:47] LABS: Glucose GTT-Gestational 1 Hr 168 mg/dL (<190)
[2023-12-07 08:55] LABS: Glucose GTT-Gestation. Fasting 102 mg/dL (<105)
[2023-12-07 10:04] LABS: Glucose GTT-Gestational 2 Hr 126 mg/dL (<165)
[2023-12-07 10:54] LABS: Glucose GTT-Gestational 3 Hr 122 L (<145)
== END | disposition home or self-care (01) ==
LOC: LAB 07:00
PROVIDERS: Referring Provider Nurse Practitioner Women's Health; Visit Provider Nurse Practitioner Women's Health
DX: O99.810 Abnormal glucose complicating pregnancy (principal); Z3A.00 Weeks of gestation of pregnancy not specified
CPT/HCPCS: 36415; 82951; 82952

== ENCOUNTER → 2024-01-18 | Outpatient (CLI) | payer MEDICAID, SELFPAY | END | disposition home or self-care (01) | LOC: LABSPEC 17:09 | PROVIDERS: Referring Provider Registered Nurse; Visit Provider Registered Nurse | DX: O09.90 Supervision of high risk pregnancy, unspecified, unspecified trimester (principal); Z3A.00 Weeks of gestation of pregnancy not specified | CPT/HCPCS: 87081 ==

== ENCOUNTER 2024-02-08 23:27 | Inpatient (IN) | payer MEDICAID, SELFPAY ==
[2024-02-08] VITALS (8 sets, daily range): BP systolic 124; BP diastolic 79; PULSE 82–96; TEMP 36.7; O2SAT 89–100; BMI 40.2
[2024-02-08] MEDS: Lactated Ringers 1,000 ML 999 ML IV (23:40)
--- NOTE | 2024-02-08 23:52 | HP.PCM.OB_ITS ---
HPI - General General Date of Admission: 02/08/24 HPI Narrative SUDHA SHAW, is a 28 F who presents Maternal Data Information CLIVE Calculator Estimated Delivery Date Method Current WG Current Estimate 02/10/24 LMP (Certain) 39w 5d PFSH PFSH Medical History Granulation tissue Depression Shirley's disease Home Medications ?Medication ?Instructions ?Recorded ?Last Taken ?Type multivitamin no.47-iron fum 27 1 cap PO DAILY 09/07/20 02/08/24 08:00 History mg-folate no.1 1 mg-dha 300 mg capsule (PNV-DHA) Allergy/AdvReac Type Severity Reaction Status Date / Time gluten AdvReac Severe Hives Verified 02/08/24 23:02 Family History Grandmother Diabetes Brain cancer Grandfather Skin cancer Social History adopted: No household members: spouse and children number of children: 1 current occupational status: unemployed pets and animals: Yes pets and animals: dog(s) history of recent travel: No sexually active: Yes Smoking Status: Never smoker second hand exposure: No alcohol intake: never substance use type: does not use diet: other well-balanced diet: daily or most days caffeine: No eating out: rarely or never during the past year weight has: increased > 10 lbs what type of physical activity do you participate in: none chip/oriental orthodox: Caodaism seatbelt use: always do you feel safe at home: Yes additional social history: TJ-hand straightener/HVAC History 2 Elective abortions Hx Para 1 Spontaneous abortions Hx # Term Pregnancies 1 Ectopic pregnancies Hx # Pregnancies Multiple births # of living children 1 Past Pregnancies Del. Date Name GA/Weeks Outcome Route Bth Weight Infant Gen Labor Lgth Anesthesia Del Locatn Provider FOB 04/23/21 [place] 40 live - full term Male epid ural [facility] Delivery Date: 04/23/21 Last Updated by: Maggy Alvarenga admitted in active labor Visit Details Expected Delivery Route/Plan Labor Preferences- CB/BF classes: [] labor support person: [] labor intervention preferences: [] pain management options preferred: [] cut cord/dad catch: [] : [] PP control planned: [] discussed possible routes of delivery and associated risks: [] special requests: [] Plans Covid status: [] Flu vaccine: [] Tdap vaccine: decline Rhogam: na LARC form signed: declined movement and labor precautions reviewed. Problem list reviewed and updated with the most current plan of care details and appropriate orders placed. Relevant counseling for the gestational age provided. Continue routine care and follow up unless otherwise noted in visit notes/problem list details OB Flowsheet Initial Weight: 206 lb Date -?-?-?-?-?-?-?-?-?-?-?-?- EGA Weight BP Urine Prot -?-?-?-?-?-?-?-?-?-?-?-?- Glucose FHR FuHt Pres Dilation -?-?-?-?-?-?-?-?-?-?-?-?- Effaced St Visit Note 07/04/23 -?-?-?-?-?-?-?-?-?-?-?-?- 8w 3d 206 lb (+0 oz) 115/74 -?-?-?-?-?-?-?-?-?-?-?-?- 185 -?-?-?-?-?-?-?-?-?-?-?-?- LC- crl con with LMP CLIVE 02/10/2024. nipt accepted. hgb1ac ordered. thryoid studies with antibiodies obtained by nipple maker 06/11. TSH 2.62. TPO 258, no hx of miscarriage will repeat tsh. 08/07/23 -?-?-?-?-?-?-?-?-?-?-?-?- 13w 2d 204 lb 6 oz (-1 lb 10 oz) 103/67 Negative -?-?-?-?-?-?-?-?-?-?-?-?- Negative -?-?--?-?-?-?-?-?-?-?-?-?- KW-no vb crampin g. no concerns. handheld US today. active movement and FH visualized 09/03/23 -?-?-?-?-?-?-?-?-?-?-?-?- 17w 1d 210 lb 4 oz (+4 lb 4 oz) 102/67 Negative -?-?-?-?-?-?-?-?-?-?-?-?- Negative 148 -?-?-?-?-?-?-?-?-?-?-?-?- LC- no vb/crampi ng. declines afp. nob labs normal. no concerns. anatomy scheduled for 09/18 LC- no vb/cramping. declines afp and nipt, will get nob labs drawn today. no concerns. anatomy scheduled for 09/1810/05/23 -?-?-?-?-?-?-?-?-?-?-?-?- 21w 5d 218 lb 2 oz (+12 lb 2 oz) 114/76 Negative -?-?-?-?-?-?-?-?-?-?-?-?- Negative 140 21 -?--?-?-?-?-?-?-?-?-?-?-?- kw- no vb/crampi ng. flutters +. discussed labs. thyroid antibodies ordered. 11/23/23 -?-?-?-?-?-?-?-?-?-?-?-?- 28w 5d 235 lb (+29 lb) 128/78 Negative -?-?-?-?-?-?-?-?-?-?-?-?- Negative 140 28 -?-?-?-?-?-?-?-?-?-?-?-?- SM- no vb lof go od fm no reuglar ctx cbc gct today 12/07/23 -?-?-?-?-?-?-?-?-?-?-?-?- 30w 5d 237 lb 4 oz (+31 lb 4 oz) 108/67 Negative -?-?-?-?-?-?-?-?-?-?-?-?- Negative 141 31 -?-?-?-?-?-?-?-?-?-?-?-?- JV- pt did her 3 hr today. she failed her fasting level and the 3 hr one is pending. 12/21/23 -?-?-?-?-?-?-?-?-?-?-?-?- 32w 5d 239 lb 2 oz (+33 lb 2 oz) 112/66 Negative -?-?-?-?-?-?-?-?-?-?-?-?- Negative 138 33 -?-?-?-?-?-?-?-?-?-?-?-?- KW- no vb/lof/ct x. good fm. doing well 01/04/24 -?-?-?-?-?-?-?-?-?-?-?-?- 34w 5d 247 lb 8 oz (+41 lb 8 oz) 120/79 Negative -?-?-?-?-?-?-?-?-?-?-?-?- Negative 130 35 -?-?-?-?-?-?-?-?-?-?-?-?- KW- no vb/lof/ct x. good fm. GBS next visit. 01/18/24 -?-?-?-?-?-?-?-?-?-?-?-?- 36w 5d 249 lb (+43 lb) 112/68 Negative -?-?-?-?-?-?-?-?-?-?-?-?- Negative 140 36 -?-?-?-?-?-?-?-?-?-?-?-?- LC- no vb/ctx/lo f. having dec fm this morning. nst ordered. LC- no vb/ctx/lof. having de c fm this morning. nst ordered and reactive LC- no vb/ctx/lof. having de c fm this morning. nst ordered and reactive. declined ve.gbs obtained. 01/25/24 -?-?-?-?-?-?-?-?-?-?-?-?- 37w 5d 257 lb (+51 lb) 130/83 111/72 Negative -?-?-?-?-?-?-?-?-?-?-?-?- Negative 145 38 Cephalic 2 -?-?-?-?-?-?-?-?-?-?-?-?- -2 JV- no lof , vaginal bleeding,or dec fm. no visual changes or headaches. has more swelling but thinks is due to being out in sun all day. encouraged to drink more and rest. 02/01/24 -?-?-?-?-?-?-?-?-?-?-?-?- 38w 5d 254 lb (+48 lb) 117/73 -?-?-?-?-?-?-?-?-?-?-?-?- 132 38 Cephalic 2 -?-?-?-?-?-?-?-?-?-?-?-?- -2 LC- no lof /vb/ctx. good fm. 02/08/24 -?-?-?-?-?-?-?-?-?-?-?-?- 39w 5d 256 lb 6 oz (+50 lb 6 oz) 133/81 Negative -?-?-?-?-?-?-?-?-?-?-?-?- Negative 130 39 Cephalic 3 .5 -?-?-?-?-?-?-?-?-?-?-?-?- -2 SM- no vb lof good fm no regular ctx mmebranes swept NST FHR Rate Baby A Baseline: 115 Variability:: Moderate Accelerations:: 15 x 15 Decelerations:: None NST Reactive:: Yes FHR Category:: Category I Uterine Activity:: q2 minutes ROS Cardiovascular Cardiovascular: Denies abdominal pain, chest pain, diaphoresis or dyspnea Respiratory/Chest Respiratory/Chest: Denies change in mental status, chest congestion, chest tightness, cough, shortness of breath at rest or shortness of breath with exertion Genitourinary Genitourinary: Reports change in urinary stream Musculoskeletal Musculoskeletal: Reports none Integumentary Integumentary: Reports none Neurologic Neurologic: Reports none Psychiatric Psychiatric: Reports none Endocrine Endocrinology: Reports none Hematologic/Lymphatic Hematologic/Lymphatic: Reports none Allergic/Immunologic Allergic/Immunologic: Reports none Vital Signs Vital Signs Vital Signs: 02/08/24 22:58 02/08/24 22:58 02/08/24 23:03 Temperature Temperature Source Pulse Rate 84 82 Blood Pressure BP Systolic BP Diastolic Pulse Ox 98 02/08/24 23:03 02/08/24 23:04 02/08/24 23:04 Temperature Temperature Source Pulse Rate 82 Blood Pressure 124/79 H BP Systolic 124 BP Diastolic 79 Pulse Ox 98 02/08/24 23:04 02/08/24 23:04 02/08/24 23:22 Temperature 98.1 F Temperature Source Temporal Pulse Rate 93 Blood Pressure BP Systolic BP Diastolic Pulse Ox 02/08/24 23:22 02/08/24 23:27 02/08/24 23:27 Temperature Temperature Source Pulse Rate 86 Blood Pressure BP Systolic BP Diastolic Pulse Ox 98 99 02/08/24 23:32 02/08/24 23:32 02/08/24 23:34 Temperature Temperature Source Pulse Rate 96 94 Blood Pressure BP Systolic BP Diastolic Pulse Ox 99 02/08/24 23:34 02/08/24 23:37 02/08/24 23:37 Temperature Temperature Source Pulse Rate 96 Blood Pressure BP Systolic BP Diastolic Pulse Ox 89 100 Weight Weight: 257 lb 3.2 oz Body Mass Index (BMI) 40.2 Physical Exam Const alert, oriented x3 and no apparent distress General Appearance: cooperative, comfortable and well kempt Orientation / Consciousness: awake and oriented to person Exam Limitations: no limitations HEENT normocephalic Neck full ROM Chest inspection of chest normal Resp normal respiratory effort, normal air movement and no retractions Effort and Inspection: able to speak in complete sentences and symmetric chest movement Cardio regular rate Peripheral Pulses: pulses 2+ throughout GI normal to inspection, nondistended, normoactive bowel sounds Inspection: gravid no CVA tenderness and appearance of the vagina normal External Female Exam: normal appearance of the urethra; Negative for external lesion OB / External & Speculum: external exam normal Manual OB Exam: estimated gestational size appropriate and presentation cephalic Uterus Palpation: Negative for uterus tender Extremity normal to inspection Skin no rashes or lesions noted Neuro deep tendon reflexes 2+ bilaterally and gait normal Motor Exam: strength 5/5 throughout and clonus absent Psych Activity / Motor Behavior: appropriate eye contact Speech: normal speech Labs Labs Labs: Blood Type O POSITIVE Antibody Screen NEGATIVE Hct 39.4 % (37-47) Hgb 13.1 g/dL (12.0-15.0) Syphilis Total Ab Non-reactive Rubella IgG Antibody Reactive (Nonreactive) Hep Bs Antigen Non-Reactive (Nonreactive) Hepatitis C Antibody Non-Reactive (Nonreactive) Chlamydia DNA (JACE) Negative (Negative) N.gonorrhoeae DNA (JACE) Negative (Negative) HIV 1&2 Antibody Non-Reactive (Nonreactive) Glucose 1 Hr 50 gm 135 mg/dL (70-140) Gest Glucose Tolerance MG/DL Rhogam given: No Miscellaneous Test Assessment & Plan (1) Spontaneous onset of labor: PLAN: Patient presents IAL, plan expectant management for , pitocin/AROM PRN if needed. Pain management: plans unmedicated, hydroponics worker at bedside. GBS negative. Management of any complications: none I have reviewed the [facility] and made any clinically relevant updates. Dr. Sqeueira updated on admission, exam and poc. (2) Obesity affecting : COMMENT: hbga1c with NOB, normal 3 hr GTT healthy weight gain in encouraged (3) Supervision of high-risk : COMMENT: PRR,, CLIVE 02/10/24, PC [facility] TJ (4) : QUALIFIERS: Weeks of gestation: 39 weeks Qualified Code(s): Z3A.39 - 39 weeks gestation of COMMENT: GBS neg. nl anatomy, discussed genetic & carrier testing, desires nipt (5) Depression: QUALIFIERS: Depression Type: unspecified Qualified Code(s): F32.9 - Major depressive disorder, single episode, unspecified COMMENT: no meds. 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 11/22 TSH receptor antibody negative. on supplements going - sees homeopathic doctor. thyroid support -plan to repeat TSH/free 4 with NOB labs and qtrimester. normal in .
[2024-02-08 23:53] LABS: Absolute Lymphocyte Count 2.54 X10^3/uL (0.83-4.51); Absolute Neutrophil Count 12.9 X10^3/uL (2.0-7.7); Basophil# 0.05 X10^3/uL; Basophil% 0.3 % (0-1); Eosinophil# 0.12 X10^3/uL; Eosinophils% 0.7 % (0-5); Hematocrit 39.4 % (37-47); Hemoglobin 13.1 g/dL (12.0-15.0); Lymphocyte # 2.54 X10^3/ul (0.83-4.51); Lymphocyte % 15.2 % (19-41); Mean Corp Hgb Conc 33.2 g/dL (32-36); Mean Corpuscular Hgb 31.3 pg (27.0-32.0); Mean Corpuscular Volume 94.3 fL (81-99); Monocyte# 0.99 X10^3/uL; Monocyte% 5.9 % (0-10); NRBC Flagged by Analyzer 0 % (0-5); Neutrophil # 12.89 X10^3/uL (2.7-7.7); Neutrophil % 77.5 % (47-70); Platelet Count 284 K/mm3 (150-450); RBC Distribution Width CV 13.1 % (11.6-14.6); RBC Distribution Width SD 44.8 fl (35.1-43.9); Red Blood Count 4.18 M/mm3 (4.2-5.4); White Blood Count 16.7 K/mm3 (4.4-11.0)
[2024-02-09] VITALS (17 sets, daily range): BP systolic 112–133; BP diastolic 59–97; PULSE 78–106; RESP 16; TEMP 36.6–37.3; O2SAT 96–99
--- NOTE | 2024-02-09 01:09 | EX.PCM.OBRPT ---
Assessment & Plan (1) Vaginal delivery: COMMENT: LYNDA BARRAGAN 39.6 [place] Maternal Data Information CLIVE Calculator Estimated Delivery Date Method Current WG Current Estimate 02/10/24 LMP (Certain) 39w 6d Final CLIVE: 02/10/24 Gestational age: 39.6 Vaginal Delivery Maternal Presentation Maternal Presentation: Active Labor Maternal Presentation: at 39.6 admitted in active labor, intact. SROM minutes prior to delivery. Operative Information Date of Procedure: 02/09/24 Pre-Operative Diagnosis: see problem list Post-Operative Diagnosis: Surgery / Procedure Performed: Spontaneous Vaginal Delivery Type of Anesthesia: None Estimated Blood Loss: 150 Time of Delivery: 00:46 Findings Description of Procedure: Patient began pushing and delivered the head in the GLORIA presentation. The head was delivered atraumatically. The anterior and posterior shoulders delivered without complication followed by the rest of the and the infant was placed on the maternal abdomen. Delayed cord clamping was employed for approximately 4 minutes. Cord was clamped and cut and gentle traction was applied to the cord and the placenta delivered spontaneously immediately following it was noted to be intact with three-vessel cord. The perineum and vagina were inspected and noted to have no laceration. EBL was 150cc. Patient and tolerated delivery well. Dr. Sequeira updated on routine delivery. routine pp orders. Presentation: Vertex Amniotic Membrane Rupture Type: Spontaneous Amniotic Fluid Description: Clear Placental Delivery Description: Spontaneous Placenta Disposition: home with patient. Cord Vessel Description: 3 Vessels Cord Entanglement: None Infant A Gender: Male (1 minute): 9 (5 minute): 9 Delayed Cord Clamping: Yes Post Vaginal Delivery Medications Given After Delivery: - (pt declined. ) Episiotomy Description: None Laceration: None Procedures Urinary/Genital [id number]: [id number] Vaginal Delivery [facility]
--- NOTE | 2024-02-09 01:15 | DCINST_ITS ---
Discharge Instructions Diet Discharge Diet: No restrictions Activity Discharge Activity: May Not Drive and May Shower May resume sexual activity in: 6 weeks Weight Bearing Status: Full weight bearing Dressing / Incision Call your doctor if your incision/area has: Sudden Increased Bleeding, Increased Pain/ Swelling and Foul Smelling Discharge Call your doctor if you observe: Fever of 101 or Higher, Numbness or Tingling, Change in Color, Inability to urinate, Inability to have a bowel movement, Using more than 1 pad per hour, Shortness of breath, Dizziness, Fainting spells, Chest pain, Calf discomfort and Uncontrolled pain Follow Up Care Please Follow Up With: Alma Delia Dawson CNM When: 6 weeks , please call office to make an appointment. Congratulations on the of your baby! Test Results: Test results from this visit will be discussed in further detail at your follow- up appointment, if applicable. Discharge Plan Admission Admit Date/Time: 02/08/24 23:27 Attending Provider: Alma Delia Dawson Primary Care Provider: Care Physician,No Primary Discharge Orders/Prescriptions Prescriptions: No Action PNV-DHA 27 mg iron-1 mg -300 mg capsule 1 cap PO DAILY Referrals / Follow Up: Care Physician,No Primary [Primary Care Provider] -
[2024-02-09] MEDS: Acetaminophen 500 MG Tablet 1000 MG PO ×2 (02:59→12:54)
[2024-02-09 07:52] LABS: Syphilis Antibodies Non-reactive
[2024-02-09] MEDS: Naproxen 500 MG Tablet PO (20:05)
[2024-02-10 01:38] VITALS: BP 116/72; PULSE 81
[2024-02-10 01:40] VITALS: BP 116/72; PULSE 85; RESP 16; TEMP 36.4; O2SAT 97
--- NOTE | 2024-02-10 05:54 | PCM.PN.OB ---
Subjective Subjective Patient doing well without complaints. Tolerating PO. Ambulating and voiding without difficulty. Feeding well. Denies chest pain, shortness of breath, calf pain/swelling, fevers, chills, lightheadedness. Objective Data Objective Data Vital Signs: Vital Signs Temp Pulse Resp BP Pulse Ox O2 Del Method 97.6 F L 85 16 116/72 97 Room Air 02/10/24 01:40 02/10/24 01:40 02/10/24 01:40 02/10/24 01:40 02/10/24 01:40 02/10/24 01:40 Oxygen Delivery Method Room Air Weight: 257 lb 3.2 oz Body Mass Index (BMI) 40.2 Intake & Output: Intake and Output for Last 24 Hours 02/08/24 02/09/24 02/10/24 23:59 23:59 23:59 Intake Total 499.5 / 499.5 Output Total 150 / 150 Balance 349.5 / 349.5 Lab / Micro Data 02/08/24 23:40 Labs: Laboratory Results - last 24 hr 02/08/24 23:40: Syphilis Total Ab Non-reactive Physical Exam Const alert and oriented x3 Eyes PERRL Neck full ROM Lymph Lymphatic: no lymphadenopathy noted Chest inspection of chest normal Resp normal respiratory effort and normal air movement Cardio regular rate and regular rhythm GI normal to inspection, nondistended, normoactive bowel sounds Uterus Palpation: uterus fundus firm Extremity normal to inspection, full ROM and no calf tenderness Skin no rashes or lesions noted Psych mental status grossly normal Assessment & Plan (1) Vaginal delivery: COMMENT: LYNDA BARRAGAN 39.6 [place] PLAN: s/p PPD # 1 1. routine post delivery care 2. breast feeding- support given 3. rh positive 4. rubella immune 5. dc home today
[2024-02-10 08:21] VITALS: BP 123/62; PULSE 81
[2024-02-10 08:45] VITALS: BP 123/67; PULSE 79; RESP 18; TEMP 37; O2SAT 97
[2024-02-10] MEDS: Naproxen 500 MG Tablet PO (09:07)
== END 2024-02-10 10:05 | disposition home or self-care (01) | DRG 560 ==
LOC: WPOUT 23:37 → WP 02-09 01:02
PROVIDERS: Admitting Provider Registered Nurse; Referring Provider Obstetrics & Gynecology; Visit Provider Registered Nurse
DX: O99.214 Obesity complicating childbirth (principal); Z37.0 Single live birth; Z3A.39 39 weeks gestation of pregnancy
CPT/HCPCS: 59025; 59050; 85025; 86780; 86850; 86900; 86901; 99221; J7120; G0378

== ENCOUNTER → 2025-01-30 | Outpatient (CLI) | payer MEDICAID, SELFPAY ==
[2025-01-30 12:39] LABS: Hemoglobin A1c 5.2 % (<=5.6)
[2025-01-30 12:55] LABS: HIV Nonreactive (Nonreactive); Hepatitis B Surface Antigen Nonreactive (Nonreactive); Hepatitis C Antibody Nonreactive (Nonreactive); Rubella IgG REAC (Nonreactive); Syphilis Antibodies Nonreactive (Nonreactive)
== END | disposition home or self-care (01) ==
PROVIDERS: Referring Provider Registered Nurse; Visit Provider Registered Nurse
DX: O09.90 Supervision of high risk pregnancy, unspecified, unspecified trimester (principal); O99.210 Obesity complicating pregnancy, unspecified trimester; Z3A.00 Weeks of gestation of pregnancy not specified; Z12.4 Encounter for screening for malignant neoplasm of cervix
CPT/HCPCS: 36415; 83036; 86703; 86762; 86780; 86803; 86850; 86900; 86901; 87086; 87088; 87340; 87491; 87591; 88175; G0145

== ENCOUNTER → 2025-03-24 | Outpatient (CLI) | payer MEDICAID, SELFPAY | END | disposition home or self-care (01) | LOC: LABSPEC 10:25 | PROVIDERS: Visit Provider Nurse Practitioner Women's Health | DX: O09.90 Supervision of high risk pregnancy, unspecified, unspecified trimester (principal); Z3A.00 Weeks of gestation of pregnancy not specified | CPT/HCPCS: 87491; 87591 ==

== ENCOUNTER → 2025-04-24 | Outpatient (CLI) | payer MEDICAID, SELFPAY | END | disposition home or self-care (01) | LOC: BWCLAB 09:38 | PROVIDERS: Referring Provider Internal Medicine Endocrinology, Diabetes & Metabolism; Visit Provider Internal Medicine Endocrinology, Diabetes & Metabolism | DX: O99.280 Endocrine, nutritional and metabolic diseases complicating pregnancy, unspecified trimester (principal); E03.9 Hypothyroidism, unspecified; Z3A.00 Weeks of gestation of pregnancy not specified | CPT/HCPCS: 36415; 84439; 84443 ==

== ENCOUNTER → 2025-06-19 | Outpatient (CLI) | payer MEDICAID, SELFPAY ==
[2025-06-19 14:05] LABS: Hematocrit 36.3 % (37-47); Hemoglobin 12.2 g/dL (12.0-15.0); Immature Granulocytes Count 0.030 X10^3/uL (0.0-0.0); Mean Corp Hgb Conc 33.6 g/dL (32-36); Mean Corpuscular Volume 94.5 fL (81-99); Mean Platelet Vol. 9.3 fl (6.2-12.0); NRBC Flagged by Analyzer 0 % (0-5); Platelet Count 313 K/mm3 (150-450); RBC Distribution Width CV 13.3 % (11.6-14.6); RBC Distribution Width SD 45.3 fl (35.1-43.9); Red Blood Count 3.84 M/mm3 (4.2-5.4); White Blood Count 8.8 K/mm3 (4.4-11.0)
[2025-06-19 15:05] LABS: Glucose Challenge Gest 1H 50g 127 mg/dL (70-140); HIV Nonreactive (Nonreactive); Syphilis Antibodies Nonreactive (Nonreactive)
== END | disposition home or self-care (01) ==
LOC: BWCLAB 13:00
PROVIDERS: Nurse Practitioner Family; Obstetrics & Gynecology; Visit Provider Advanced Practice Midwife
DX: O09.92 Supervision of high risk pregnancy, unspecified, second trimester (principal); O99.281 Endocrine, nutritional and metabolic diseases complicating pregnancy, first trimester; E06.3 Autoimmune thyroiditis; Z3A.00 Weeks of gestation of pregnancy not specified; Z13.1 Encounter for screening for diabetes mellitus
CPT/HCPCS: 36415; 82950; 84439; 84443; 85025; 86703; 86780